=== PATIENT | male | born 1960 | race Caucasian/White ===

== ENCOUNTER → 2016-09-29 | Day surgery (SDC) | payer BC ==
[~2016-09-29] MED LIST: ASPIRIN CHEWABL81 MG PO; METFORMIN HCL500 MG PO; MOBIC7.5 MG PO; MULTIVITAMINS1 EAC1 PO; OMEPRAZOLE20 M1 PO; VESICARE10 MG PO; ZYLOPRIM 100 M100 MG PO
== END | disposition home or self-care (01) ==
LOC: OR 08:26
PROVIDERS: Internal Medicine Gastroenterology
PROC: 0DB38ZX Excision of Lower Esophagus, Via Natural or Artificial Opening Endoscopic, Diagnostic (ICD-10-PCS; principal; 2016-09-29 15:15)
DX: K20.0 Eosinophilic esophagitis (principal); K21.9 Gastro-esophageal reflux disease without esophagitis; G47.33 Obstructive sleep apnea (adult) (pediatric); E11.9 Type 2 diabetes mellitus without complications; I20.9 Angina pectoris, unspecified; E66.01 Morbid (severe) obesity due to excess calories; M81.0 Age-related osteoporosis without current pathological fracture; M19.90 Unspecified osteoarthritis, unspecified site; Z68.41 Body mass index [BMI] 40.0-44.9, adult; Z99.89 Dependence on other enabling machines and devices; Z90.89 Acquired absence of other organs; Z98.890 Other specified postprocedural states
CPT/HCPCS: 82962; J2250; J3010; J7030

== ENCOUNTER → 2016-10-30 | Outpatient (CLI) | payer BC | LOC: RAD 08:25 | DX: R13.14 Dysphagia, pharyngoesophageal phase (principal); K21.0 Gastro-esophageal reflux disease with esophagitis | CPT/HCPCS: 74220 ==

== ENCOUNTER → 2020-07-17 | Outpatient (CLI) | payer BC ==
[~2020-07-17] MED LIST changes: +CELEBREX200 MG PO; +COLACE 100MG C100 MG PO; +JANUVIA 100 MG100 MG PO; +NORCO 7.5-3251 EACH PO; +RANITIDINE HCL150 MG PO; +VOLTAREN100 GM TP
== END ==
LOC: CT 12:00
DX: Z01.818 Encounter for other preprocedural examination (principal); S42.202A Unspecified fracture of upper end of left humerus, initial encounter for closed fracture; R91.1 Solitary pulmonary nodule
CPT/HCPCS: 73200

== ENCOUNTER → 2020-11-22 | Outpatient (CLI) | payer BC | LOC: KOH-I 14:19 | DX: M25.542 Pain in joints of left hand (principal) | CPT/HCPCS: 73130 ==